=== PATIENT | female | born 1995 | race Two or more races ===

== ENCOUNTER 2017-06-08 11:53 | Emergency (ER) | payer MEDICAID ==
[2017-06-08 12:16] VITALS: BP 133/68
[2017-06-08] MEDS ORDERED: MECLIZINE 12.5 MG TABLET PO STA (12:38)
--- NOTE | 2017-06-08 12:40 | ED Physician Documentation ---
History of Present Illness - Stated complaint Stated Complaint: THROAT BURINING/DIZZY - Chief complaint Chief Complaint: Heent - Additonal information Additional information: hx from pt 22 f cough and congestion for a molnth today sore/burnign throat and vertigo too denies preg Review of Systems Constitutional: denies: Fever, Chills Ears: denies: Ear pain Nose: reports: Congestion Throat: reports: Sore throat Respiratory: reports: Cough : denies: Now [facility] PD PAST MEDICAL HISTORY - Past Medical History Cardiovascular: None Respiratory: None Neuro: None Endocrine/Autoimmune: None - Past Surgical History Past Surgical History: No - Present Medications Home Medications: Ambulatory Orders Medication Instructions Recorded Confirmed Meclizine [Antivert] 25 mg PO Q6H PRN #20 tablet 06/08/17 - Allergies Allergies/Adverse Reactions: Allergies Allergy/AdvReac Type Severity Reaction Status Date / Time No Known Drug Allergies Allergy Verified 03/31/16 17:41 - Social History Does the pt smoke?: No Smoking Status: Never smoker Does the pt drink ETOH?: No Does the pt have substance abuse?: No - Immunizations Immunizations are current?: Yes PD ED PE NORMAL - Vitals Vital signs reviewed: Yes - HEENT HEENT: PERRL, EOMI, Moist mucous membranes. No: Ears normal (retracted), Pharynx benign (mild erythema no exudate) - Neck Neck: Supple, no meningeal sign - Cardiac Cardiac: RRR - Respiratory Respiratory: No respiratory distress, Clear bilaterally - Abdomen Abdomen: Soft, Non tender - Neuro Neuro: Alert and oriented X 3, No motor deficit Results - Vitals Vitals: Vital Signs - 24 hr 06/08/17 12:14 Temperature 36.3 C L Heart Rate 87 Respiratory 18 Rate Blood Pressure 133/68 H O2 Saturation 97 Oxygen O2 Source Room air - Labs Labs: Laboratory Tests 06/08/17 12:28 Group A Strep Rapid Negative Departure - Departure Clinical Impression: Vertigo Pharyngitis Qualifiers: Pharyngitis/tonsillitis etiology: unspecified etiology Qualified Code(s): J02.9 - Acute pharyngitis, unspecified Condition: Good Instructions: ED Pharyngitis Viral Report Pending, ED Vertigo Unspecified Follow-Up: Alexia Haley ARNP [Primary Care Provider] - Prescriptions: Meclizine [Antivert] 25 mg PO Q6H PRN #20 tablet PRN Reason: Dizziness Comments: The rapid strep was negative A throat culture will be run and the ER staff will call you if it is positive I have prescribed medications to ease your symptoms
== END 2017-06-08 13:15 | disposition home or self-care (01) ==
LOC: ED 11:53
DX: J02.9 Acute pharyngitis, unspecified (principal); R42 Dizziness and giddiness
CPT/HCPCS: 87070; 87430; 99283; A9270

== ENCOUNTER 2017-06-28 14:45 | Outpatient (CLI) | payer MEDICAID | END 2017-06-28 14:46 | disposition home or self-care (01) | LOC: LAB.R 14:45 | PROVIDERS: ATTEND Nurse Practitioner Family | DX: J02.0 Streptococcal pharyngitis (principal) | CPT/HCPCS: 87070 ==

== ENCOUNTER 2018-05-02 11:54 | Outpatient (CLI) | payer MEDICAID ==
[2018-05-02 19:19] LABS: BASOPHILS # (AUTO) 0.1 10^3/uL (0.0-0.1); BASOPHILS % (AUTO) 0.8 %; EOSINOPHILS # (AUTO) 0.4 10^3/uL (0.0-0.7); EOSINOPHILS % (AUTO) 4.2 %; HGB - HEMOGLOBIN 14.3 g/dL (12.0-16.0); LYMPHOCYTES # (AUTO) 1.3 10^3/uL (1.5-3.5); LYMPHOCYTES % (AUTO) 13.1 %; MEAN CORPUSCULAR HEMOGLOBIN 28.2 pg (27.0-31.0); MEAN CORPUSCULAR HGB CONC 32.7 g/dL (32.0-36.0); MEAN CORPUSCULAR VOLUME 86.2 fL (81.0-99.0); MEAN PLATELET VOLUME 8.7 fL (7.9-10.8); MONOCYTES # (AUTO) 0.7 10^3/uL (0.0-1.0); MONOCYTES % (AUTO) 6.5 %; NEUTROPHILS # (AUTO) 7.7 10^3/uL (1.5-6.6); NEUTROPHILS % (AUTO) 75.4 %; PLT - PLATELET COUNT 346 10^3/uL (130-450); RED BLOOD COUNT 5.06 10^6/uL (4.20-5.40); RED CELL DISTRIBUTION WIDTH 13.8 % (12.0-15.0); WHITE BLOOD COUNT 10.1 x10^3/uL (4.8-10.8)
[2018-05-02 21:02] LABS: PLATELET ESTIMATE, MANUAL NORMAL (130-450,000) (NORMAL); PLATELET MORPHOLOGY NORMAL APPEARANCE (NORMAL); RBC MORPHOLOGY (MULTIPLE) NORMAL APPEARANCE (NORMAL)
== END 2018-05-02 23:59 ==
LOC: LAB.N 11:54
PROVIDERS: ATTEND Physician Assistant Medical
DX: Z83.2 Family history of diseases of the blood and blood-forming organs and certain disorders involving the immune mechanism (principal)
CPT/HCPCS: 36415; 81599; 85025

== ENCOUNTER 2018-08-08 17:40 | Emergency (ER) | payer SELFPAY ==
[2018-08-08] MEDS ORDERED: SUMAtriptan 6 MG/0.5 ML VIAL SUBQ STA (18:00)
--- NOTE | 2018-08-08 18:29 | CT Report ---
Reason: headache Procedure Date: 08/08/2018 Accession Number: [id number] / [id number] Procedure: CT - HEAD WO CPT Code: FULL RESULT: EXAM: CT HEAD EXAM DATE: 08/08/2018 06:11 PM. CLINICAL HISTORY: Headache. Symptoms have been present for 1 week. COMPARISON: None. TECHNIQUE: Multiaxial CT images were obtained from the foramen magnum to the vertex. Reformats: Sagittal and coronal. IV contrast: None. In accordance with CT protocol optimization, one or more of the following dose reduction techniques were utilized for this exam: automated exposure control, adjustment of mA and/or KV based on patient size, or use of iterative reconstructive technique. FINDINGS: Parenchyma: No intraparenchymal hemorrhage. No evidence of mass, midline shift, or CT findings of infarction. Escobar-white differentiation is distinct. Extraaxial Spaces: Normal for age. No subdural or epidural collections identified. Ventricles: Normal in size and position. Sinuses and Orbits: Imaged paranasal sinuses, orbits, and mastoids show no significant abnormality. Bones: No evidence of fracture or calvarial defect. Other: None. IMPRESSION: 1. Negative noncontrast CT scan of the head. No acute abnormality. RADIA
--- NOTE | 2018-08-08 18:38 | ED Physician Documentation ---
PD HPI HEADACHE - Stated complaint Stated Complaint: GONZALEZ/BLURRY VISION - Chief complaint Chief Complaint: Neuro - History obtained from History obtained from: Patient - History of Present Illness Timing - onset: Other (This is a 23-year-old woman with history of recurrent occasional migraines who had a gradual onset headache that is been waxing and waning over the course the last week with a throbbing sensation to both temples associated with mildly blurry vision. She has had headaches similar to worse than this in the past but the blurry vision bothered her. It is worse at night. She does have some light sensitivity. She feels like she is under a lot of stress at work. There is no vomiting or fevers.) Review of Systems Constitutional: denies: Fever, Chills Eyes: reports: Loss of vision, Decreased vision, Photophobia. denies: Discharge, Irritation Ears: denies: Loss of hearing, Ear pain, Drainage/discharge Nose: denies: Rhinorrhea / runny nose, Congestion PD PAST MEDICAL HISTORY - Past Medical History Cardiovascular: None Respiratory: None Endocrine/Autoimmune: None - Past Surgical History Past Surgical History: No - Present Medications Home Medications: Ambulatory Orders Medication Instructions Recorded Confirmed No Known Home Medications 08/08/18 08/08/18 - Allergies Allergies/Adverse Reactions: Allergies Allergy/AdvReac Type Severity Reaction Status Date / Time No Known Drug Allergies Allergy Verified 08/08/18 17:50 - Social History Does the pt smoke?: No Smoking Status: Never smoker Does the pt drink ETOH?: No Does the pt have substance abuse?: No - Immunizations Immunizations are current?: Yes PD ED PE NORMAL - Vitals Vital signs reviewed: Yes - General General: Alert and oriented X 3, No acute distress - HEENT HEENT: PERRL, EOMI, Pharynx benign - Neck Neck: Supple, no meningeal sign, No bony TTP - Neuro Neuro: Alert and oriented X 3, sales and merchandising associate 2-12 intact Eye Opening: Spontaneous Motor: Obeys Commands Verbal: Oriented GCS Score: 15 - Psych Psych: Normal mood, Normal affect Results - Vitals Vitals: Vital Signs - 24 hr 08/08/18 17:48 Temperature 36.3 C L Heart Rate 89 Respiratory 14 Rate Blood Pressure 168/104 H O2 Saturation 98 Oxygen O2 Source Room air - Rads (name of study) CT Head Radiology: EMP read contemporaneously (normal) PD MEDICAL DECISION MAKING - ED course ED course: This is a 23-year-old woman with history of migraines who presents with a headache that actually is not too bad but is associated with blurry vision which worries her. CT was done to rule out occipital mass which was negative. Her vision is grossly normal. She was advised to decrease stress and follow-up with a reconditioner. Departure - Departure Disposition: Home, Self Care Clinical Impression: Tension headache Condition: Good Record reviewed to determine appropriate education?: Yes Instructions: ED Cephalgia Unspecified Comments: Your headache is most consistent with a tension headache, that said it would be advisable to follow-up with an reconditioner next available appointment. Return for new or worsening symptoms. Your blood pressure was elevated today on check into the emergency department. This does not mean that you have hypertension, it is a common phenomenon to come to the emergency department and have elevated blood pressure. I recommend that you see your primary care physician within the week to have it rechecked when you are feeling better.
[2018-08-08 18:42] VITALS: BP 151/96
== END 2018-08-08 18:42 | disposition home or self-care (01) ==
LOC: ED 17:40
DX: G44.209 Tension-type headache, unspecified, not intractable (principal); R03.0 Elevated blood-pressure reading, without diagnosis of hypertension
CPT/HCPCS: 70450; 96372; 99283

== ENCOUNTER 2019-02-28 12:04 | Emergency (ER) | payer OTHER ==
[2019-02-28 13:24] LABS: BASOPHILS % (AUTO) 0.4 %; EOSINOPHILS # (AUTO) 0.2 10^3/uL (0.0-0.7); EOSINOPHILS % (AUTO) 2.7 %; HGB - HEMOGLOBIN 14.2 g/dL (12.0-16.0); LYMPHOCYTES # (AUTO) 1.1 10^3/uL (1.5-3.5); LYMPHOCYTES % (AUTO) 15.7 %; MEAN CORPUSCULAR HEMOGLOBIN 27.4 pg (27.0-31.0); MEAN CORPUSCULAR HGB CONC 31.6 g/dL (32.0-36.0); MEAN CORPUSCULAR VOLUME 86.7 fL (81.0-99.0); MEAN PLATELET VOLUME 10.1 fL (7.9-10.8); MONOCYTES % (AUTO) 14.2 %; NEUTROPHILS # (AUTO) 4.7 10^3/uL (1.5-6.6); NEUTROPHILS % (AUTO) 66.6 %; PLT - PLATELET COUNT 330 10^3/uL (130-450); RED BLOOD COUNT 5.18 10^6/uL (4.20-5.40); RED CELL DISTRIBUTION WIDTH 13.4 % (12.0-15.0)
[2019-02-28 13:37] LABS: ALBUMIN 4.3 g/dL (3.2-5.5); ALBUMIN/GLOBULIN RATIO 1.3 (1.0-2.2); BILIRUBIN,TOTAL 0.6 mg/dL (0.2-1.0); CALCIUM 9.4 mg/dL (8.5-10.3); CREATININE 0.7 mg/dL (0.4-1.0); TOTAL PROTEIN 7.6 g/dL (6.7-8.2)
[2019-02-28] MEDS ORDERED: SODIUM CHLORIDE 0.9% 1,000 ML IV ONE (15:14)
[2019-02-28] MEDS ORDERED: ONDANSETRON 4 MG/2 ML VIAL IVP STA (15:14)
--- NOTE | 2019-02-28 15:19 | ED Physician Documentation ---
PD HPI NVD - Stated complaint Stated Complaint: VOMITING/DIARRHEA - Chief complaint Chief Complaint: Abd Pain - History obtained from History obtained from: Patient - History of Present Illness Timing - onset: Other (She is been sick for a week with diarrhea and about 4 5 days with nausea and vomiting. She is had abdominal cramping. She is been exposed to multiple viral illnesses, she works in a daycare center. She denies fevers but did have chills yesterday. No recent travel, antibiotic use, or camping. No possibility of .) Review of Systems Constitutional: reports: Chills. denies: Fever Throat: denies: Dental pain / toothache, Sore throat Cardiac: denies: Chest pain / pressure, Palpitations Respiratory: denies: Dyspnea, Cough PD PAST MEDICAL HISTORY - Past Medical History Cardiovascular: None Respiratory: None Endocrine/Autoimmune: None - Past Surgical History Past Surgical History: No - Present Medications Home Medications: Ambulatory Orders Medication Instructions Recorded Confirmed Dicyclomine [Bentyl] 20 mg PO QID PRN #15 capsule 02/28/19 Loperamide [Imodium] 2 mg PO QID PRN #10 capsule 02/28/19 Ondansetron Odt [Zofran] 4 mg TL Q6H PRN #10 tablet 02/28/19 - Allergies Allergies/Adverse Reactions: Allergies Allergy/AdvReac Type Severity Reaction Status Date / Time No Known Drug Allergies Allergy Verified 02/28/19 12:22 - Social History Does the pt smoke?: No Smoking Status: Never smoker Does the pt drink ETOH?: No Does the pt have substance abuse?: No - Immunizations Immunizations are current?: Yes PD ED PE NORMAL - Vitals Vital signs reviewed: Yes - General General: Alert and oriented X 3, No acute distress - HEENT HEENT: PERRL, EOMI - Neck Neck: Supple, no meningeal sign, No bony TTP - Cardiac Cardiac: RRR, No murmur - Respiratory Respiratory: No respiratory distress, Clear bilaterally - Abdomen Abdomen: Soft, Non tender - Derm Derm: No rash - Neuro Neuro: Alert and oriented X 3, Normal speech Results - Vitals Vitals: Vital Signs - 24 hr 02/28/19 02/28/19 12:22 16:09 Temperature 36.5 C Heart Rate 90 76 Respiratory 16 18 Rate Blood Pressure 138/82 H 129/76 O2 Saturation 99 100 Oxygen O2 Source Room air - Labs Labs: Laboratory Tests 02/28/19 02/28/19 13:15 13:15 WBC 7.0 RBC 5.18 Hgb 14.2 Hct 44.9 MCV 86.7 MCH 27.4 MCHC 31.6 L RDW 13.4 Plt Count 330 MPV 10.1 Neut # (Auto) 4.7 Lymph # (Auto) 1.1 L [place] # (Auto) 1.0 Eos # (Auto) 0.2 Baso # (Auto) 0.0 Absolute Nucleated RBC 0.00 Nucleated RBC % 0.0 Sodium 140 Potassium 3.6 Chloride 104 Carbon Dioxide 27 Anion Gap 9.0 BUN 10 Creatinine 0.7 Estimated GFR (MDRD) 106 Glucose 92 Calcium 9.4 Total Bilirubin 0.6 AST 22 ALT 29 Alkaline Phosphatase 40 L Total Protein 7.6 Albumin 4.3 Globulin 3.3 Albumin/Globulin Ratio 1.3 Lipase 30 PD MEDICAL DECISION MAKING - ED course ED course: This young lady seems to have a viral syndrome with vomiting and diarrhea. Based on her blood work I have a low suspicion for a bacterial illness. No recent antibiotics or camping. She was unable to provide a stool sample here and felt better after IV fluids and Zofran. Departure - Departure Disposition: 01 Home, Self Care Clinical Impression: Vomiting Qualifiers: Vomiting type: unspecified Vomiting Intractability: non-intractable Nausea presence: with nausea Qualified Code(s): R11.2 - Nausea with vomiting, unspecified Diarrhea Qualifiers: Diarrhea type: presumed infectious Qualified Code(s): R19.7 - Diarrhea, unspecified Condition: Good Record reviewed to determine appropriate education?: Yes Instructions: ED Diarrhea Viral Prescriptions: Dicyclomine [Bentyl] 20 mg PO QID PRN #15 capsule PRN Reason: Abdominal Pain Loperamide [Imodium] 2 mg PO QID PRN #10 capsule PRN Reason: Diarrhea Ondansetron Odt [Zofran] 4 mg TL Q6H PRN #10 tablet PRN Reason: Nausea / Vomiting Comments: Return for new worsening symptoms or if not better over the next 48 hours or so. Forms: Activity restrictions
[2019-02-28 16:39] VITALS: BP 122/71
[2019-02-28 17:03] LABS: GLUCOSE, URINE (UA) NEGATIVE (NEGATIVE); KETONES,URINE (UA) >=80 mg/dL (NEGATIVE); LEUKOCYTE ESTERASE, URINE NEGATIVE (NEGATIVE); NITRITE,URINE NEGATIVE (NEGATIVE); OCCULT BLOOD,URINE NEGATIVE (NEGATIVE); PH,URINE 5.5 PH (5.0-7.5); PROTEIN,URINE NEGATIVE (NEGATIVE); UROBILINOGEN,URINE 1 (NORMAL) E.U./dL (NORMAL)
[2019-02-28 17:08] LABS: CLARITY,URINE CLEAR (CLEAR)
[2019-02-28 17:09] LABS: BILIRUBIN,URINE SMALL (NEGATIVE); HCG UR QUAL NEGATIVE; ICTOTEST,URINE POSITIVE
== END 2019-02-28 17:00 | disposition home or self-care (01) ==
LOC: ED 12:04
DX: R11.2 Nausea with vomiting, unspecified (principal); R19.7 Diarrhea, unspecified
CPT/HCPCS: 36415; 80053; 81001; 81003; 81025; 83690; 85025; 87086; 96374; 99283

== ENCOUNTER 2019-04-12 15:17 | Emergency (ER) | payer OTHER ==
--- NOTE | 2019-04-12 16:04 | XRAY Report ---
Reason: table flipped on it Procedure Date: 04/12/2019 Accession Number: [id number] / [id number] Procedure: XR - Foot 3 View LT CPT Code: Final Report FULL RESULT: EXAM: LEFT FOOT RADIOGRAPHY EXAM DATE: 04/12/2019 03:41 PM. CLINICAL HISTORY: Table flipped on it. Foot pain. COMPARISON: None. TECHNIQUE: 3 views. FINDINGS: Bones: Normal. No fractures or bone lesions. Joints: Normal. No subluxations. Soft Tissues: Normal. No soft tissue swelling. IMPRESSION: Normal foot radiography. No fractures are seen. RADIA
--- NOTE | 2019-04-12 17:24 | ED Physician Documentation ---
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 She has been able to bear weight but with discomfort. No other injuries. Review of Systems Skin: denies: Lesions Musculoskeletal: reports: Extremity pain PD PAST MEDICAL HISTORY - Past Medical History Cardiovascular: None Respiratory: None Endocrine/Autoimmune: None - Past Surgical History Past Surgical History: No - Present Medications Home Medications: Ambulatory Orders Medication Instructions Recorded Confirmed Dicyclomine [Bentyl] 20 mg PO QID PRN #15 capsule 02/28/19 Loperamide [Imodium] 2 mg PO QID PRN #10 capsule 02/28/19 Ondansetron Odt [Zofran] 4 mg TL Q6H PRN #10 tablet 02/28/19 - Allergies Allergies/Adverse Reactions: Allergies Allergy/AdvReac Type Severity Reaction Status Date / Time No Known Drug Allergies Allergy Verified 04/12/19 15:26 - Social History Does the pt smoke?: No Smoking Status: Never smoker Does the pt drink ETOH?: No Does the pt have substance abuse?: No - Immunizations Immunizations are current?: Yes PD ED PE NORMAL - Vitals Vital signs reviewed: Yes - General General: Alert and oriented X 3 - HEENT HEENT: Atraumatic - Respiratory Respiratory: No respiratory distress - Extremities Extremities: Other (Feet are symmetric in appearance, no signs of external trauma. Both are neurovascularly intact. There is some tenderness over the left dorsal forefoot.) Results - Vitals Vitals: Oxygen O2 Source Room air - Rads (name of study) foot 3 view L Radiology: Other (No acute osseous abnormality) PD MEDICAL DECISION MAKING - ED course ED course: Pt presents with left foot pain, her exam is very benign and I cannot see signs of obvious external trauma to her foot. XR is negative for fracture. I discussed RICE and repeat XR in a week to assess for occult fracture and follow up with PCP if having continued pain. Pt states she is limping on it so crutches were provided. Supportive care reviewed. Departure - Departure Disposition: 01 Home, Self Care Clinical Impression: Foot pain Qualifiers: Laterality: right Qualified Code(s): M79.671 - Pain in right foot Condition: Good Follow-Up: Dwaine Rai PA-C [Primary Care Provider] - Comments: We do not see signs or fracture today, use the crutches until you are able to walk normally on the foot. If you are having not improving pain in 1 week, follow-up with your primary care provider for a repeat examination and x-ray. You may take Tylenol and ibuprofen for your discomfort, rest ice and elevate the leg. Discharge Date/Time: 04/12/19 18:28
[2019-04-12 18:29] VITALS: BP 134/74
== END 2019-04-12 18:28 | disposition home or self-care (01) ==
LOC: ED 15:17
DX: M79.672 Pain in left foot (principal); W20.8XXA Other cause of strike by thrown, projected or falling object, initial encounter; Y93.89 Activity, other specified; Y92.219 Unspecified school as the place of occurrence of the external cause; Y99.0 Civilian activity done for income or pay
CPT/HCPCS: 99282; 99283

== ENCOUNTER 2019-05-09 07:24 | Emergency (ER) | payer OTHER ==
--- NOTE | 2019-05-09 07:30 | ED Physician Documentation ---
PD HPI URI - Stated complaint Stated Complaint: COLD SX - History obtained from History obtained from: Patient - History of Present Illness Timing - onset: How many weeks ago (3) Timing duration: Weeks (3) Timing details: Gradual onset, Still present (worse the past few days with increased cough and coughing until almost vomiting.) Associated symptoms: Sore throat, Dry cough, Dyspnea. No: Fever, Nasal congestion, NVD Contributing factors: No: Sick contact, Travel, Immunocompromised, COPD / asthma Improves by: No: Medication (theraflu and such) Worsened by: Activity Similar symptoms before: Has not had sx before Review of Systems Constitutional: denies: Fever Nose: reports: Congestion Throat: reports: Sore throat Cardiac: denies: Chest pain / pressure Respiratory: reports: Dyspnea, Cough. denies: Wheezing GI: reports: Diarrhea. denies: Vomiting PD PAST MEDICAL HISTORY - Past Medical History Cardiovascular: None Respiratory: None Endocrine/Autoimmune: None - Past Surgical History Past Surgical History: No - Present Medications Home Medications: Ambulatory Orders Medication Instructions Recorded Confirmed Benzonatate [Tessalon Perle] 100 - 200 mg PO TID PRN #30 capsule 05/09/19 Doxycycline Monohydrate 100 mg PO BID #14 tablet 05/09/19 dexAMETHasone [Decadron] 4 mg PO DAILY #5 tablet 05/09/19 - Allergies Allergies/Adverse Reactions: Allergies Allergy/AdvReac Type Severity Reaction Status Date / Time No Known Drug Allergies Allergy Verified 05/09/19 07:34 - Social History Does the pt smoke?: No Smoking Status: Never smoker Does the pt drink ETOH?: No Does the pt have substance abuse?: No - Immunizations Immunizations are current?: Yes PD ED PE NORMAL - Vitals Vital signs reviewed: Yes - General General: Alert and oriented X 3, No acute distress, Well developed/nourished - HEENT HEENT: Ears normal, Pharynx benign - Neck Neck: Supple, no meningeal sign, No adenopathy - Cardiac Cardiac: RRR, No murmur - Respiratory Respiratory: Clear bilaterally - Abdomen Abdomen: Soft, Non tender - Derm Derm: Normal color, Warm and dry - Extremities Extremities: No edema, No calf tenderness / cord Results - Vitals Vitals: Vital Signs - 24 hr 05/09/19 05/09/19 07:27 07:40 Temperature 36.2 C L Heart Rate 88 Respiratory 18 Rate Blood Pressure 141/85 H O2 Saturation 96 Oxygen O2 Source Room air PD MEDICAL DECISION MAKING - ED course Complexity details: considered differential (prolonged cough now worse, with current cough pattern sounding almost pertussis-like), d/w patient Departure - Departure Disposition: 01 Home, Self Care Clinical Impression: Upper respiratory infection Qualifiers: URI type: unspecified URI Qualified Code(s): J06.9 - Acute upper respiratory infection, unspecified Condition: Stable Record reviewed to determine appropriate education?: Yes Follow-Up: Dwaine Rai PA-C [Primary Care Provider] - Prescriptions: Benzonatate [Tessalon Perle] 100 - 200 mg PO TID PRN #30 capsule PRN Reason: Cough dexAMETHasone [Decadron] 4 mg PO DAILY #5 tablet Doxycycline Monohydrate 100 mg PO BID #14 tablet Comments: Stay well-hydrated. Tylenol or ibuprofen if needed for pains or fever. Doxycycline antibiotic twice daily for a week for possible bacterial component. Otherwise many of these are just viral and treat on the symptoms mostly. To that end we would use the Decadron steroid for inflammation of the airways to decrease coughing and also Tessalon if needed for cough suppression. You can still continue [id number] cough medicines. I would anticipate improvement over the next several days up to a week Discharge Date/Time: 05/09/19 08:28
[2019-05-09 07:34] VITALS: BP 141/85
[2019-05-09] MEDS ORDERED: BENZONATATE 100 MG CAPSULE PO STA (08:01)
[2019-05-09] MEDS ORDERED: CHERRY SYRUP 10 ML UDC PO ONE (08:01)
[2019-05-09] MEDS ORDERED: DOXYCYCLINE 100 MG TABLET PO STA (08:01)
[2019-05-09] MEDS ORDERED: DEXAMETHASONE 10 MG/ML VIAL PO STA (08:01)
== END 2019-05-09 08:28 | disposition home or self-care (01) ==
LOC: ED 07:24
DX: J06.9 Acute upper respiratory infection, unspecified (principal)
CPT/HCPCS: 99283; 99284; A9270

== ENCOUNTER 2022-07-07 11:36 | Emergency (ER) | payer OTHER ==
[2022-07-07 12:17] VITALS: BP 160/101
--- NOTE | 2022-07-07 13:15 | ED Physician Documentation ---
PD HPI UPPER EXT INJURY - Stated complaint Stated Complaint: L SHLDR INJ - Chief complaint Chief Complaint: Ext Problem - History obtained from History obtained from: Patient - History of Present Illness Location: Left, Shoulder Where injury occurred: Work Worsened by: Moving, Palpating Associated symptoms: Weakness. No: Numbness, Tingling, Swelling, Discolored Contributing factors: Work related. No: Anticoagulated, Prior ortho surgery, Prosthetic joint, Other Similar symptoms before: Has not had sx before - Additonal information Additional information: 27-year-old female presents with left shoulder pain. 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 She did not think much of it and did not hurt at the time that she continue on with her day however last night it started to ache and throbbing today still aching and she has decreased range of motion. No swelling or deformity. She took ibuprofen on one occasion with minimal relief. No numbness tingling, no fever or chills. No other injuries or trauma to the area. PD PAST MEDICAL HISTORY - Past Medical History Cardiovascular: None Respiratory: None Endocrine/Autoimmune: None - Past Surgical History Past Surgical History: No - Present Medications Home Medications: Ambulatory Orders Medication Instructions Recorded Confirmed No Known Home Medications 07/07/22 07/07/22 - Allergies Allergies/Adverse Reactions: Allergies Allergy/AdvReac Type Severity Reaction Status Date / Time No Known Drug Allergies Allergy Verified 07/07/22 12:17 - Social History Does the pt smoke?: No Smoking Status: Never smoker Does the pt drink ETOH?: No Does the pt have substance abuse?: No - Immunizations Immunizations are current?: Yes PD ED PE NORMAL - Vitals Vital signs reviewed: Yes - General General: Alert and oriented X 3, No acute distress, Well developed/nourished - HEENT HEENT: Atraumatic - Neck Neck: Supple, no meningeal sign, No JVD - Cardiac Cardiac: RRR, No murmur - Respiratory Respiratory: No respiratory distress, Clear bilaterally - Derm Derm: Normal color, Warm and dry, No rash - Extremities Extremities: No deformity, Normal ROM s pain, No edema, No calf tenderness / cord, Other (Tenderness anterior left shoulder and biceps tendon, no obvious deformity, no Hill sign, no erythema or swelling, no clavicle or scapula tenderness or surrounding muscle tenderness.) Results - Vitals Vitals: Vital Signs - 24 hr 07/07/22 12:13 Temperature 36.8 C Heart Rate 81 Respiratory 16 Rate Blood Pressure 160/101 H O2 Saturation 100 Oxygen O2 Source Room air PD Medical Decision Making - ED course Complexity details: reviewed results, d/w patient ED course: 27-year-old female presented with left shoulder pain as described in HPI. She is well-appearing physical exam with no obvious injury. X-ray was obtained which was normal. I discussed with patient that she may have a shoulder strain either soft tissue or ligamentous injury and recommended supportive measures for the next 1 to 2 weeks and light range of motion activity, Tylenol or ibuprofen, cool compress and she was given a sling. She was advised to take reminiscing several times a day to do range of motion activity. I advised her if no improvement in next 1 to 2 weeks to follow-up with her primary doctor and consider PT or additional imaging if indicated. Departure - Departure Disposition: 01 Home, Self Care Clinical Impression: Left shoulder strain Qualifiers: Encounter type: initial encounter Qualified Code(s): S46.912A - Strain of unspecified muscle, fascia and tendon at shoulder and upper arm level, left arm, initial encounter Condition: Good Instructions: ED Sprain Shoulder Comments: You presented with left shoulder pain. Your x-rays were normal but as we discussed, you can have small tears in the Muscles and supporting tissues of the shoulder that can cause pain and immobility. I recommend you continue to use ibuprofen and Tylenol as needed for pain and you can continue to ice it. We have given you a sling but I would like you to take the shoulder out of the sling several times each day and do some light range of motion activity. If you have no improvement in the next 1 to 2 weeks, follow-up with your primary doctor and they may do additional evaluation or refer you to physical therapy. Shoulder injuries can take several weeks if not longer to heal. Please avoid any heavy lifting or repetitive reaching overhead until symptoms improve. Forms: Activity restrictions
--- NOTE | 2022-07-07 13:21 | XRAY Report ---
PROCEDURE: Shoulder 3 View LT INDICATIONS: injury when lifting TECHNIQUE: 3 views of the shoulder were acquired. COMPARISON: None. FINDINGS: Bones: No fractures or dislocations. No suspicious bony lesions. Visualized ribs appear intact. Soft tissues: No suspicious soft tissue calcifications. IMPRESSION: No acute fracture. No osseous lesion. If symptoms and/or clinical suspicion for patholog y continue, further assessment with repeat plain films, or advanced imaging (e.g., CT, MRI, or bone s can) is recommended for further assessment. Reviewed by: Roe Lincoln MD on 07/07/2022 1:20 PM PST Approved by: Roe Lincoln MD on 07/07/2022 1:20 PM PST Station ID: [id number]
== END 2022-07-07 13:55 | disposition home or self-care (01) ==
LOC: ED 11:36
DX: S46.912A Strain of unspecified muscle, fascia and tendon at shoulder and upper arm level, left arm, initial encounter (principal); X58.XXXA Exposure to other specified factors, initial encounter; Y93.F2 Activity, caregiving, lifting; Y92.210 Daycare center as the place of occurrence of the external cause; Y99.0 Civilian activity done for income or pay
CPT/HCPCS: 1040M; 73030; 99283